=== PATIENT | male | born 1990 | race Asian ===

== ENCOUNTER → 2019-01-12 | Outpatient (CLI) | payer SELFPAY ==
[2019-01-12 09:53] LABS: HGB 15.3 gm/dL (13.0-17.5); MCHC 32.5 g/dL (31.0-37.0); MCV 89.2 fL (80.0-100.0); Mean Platelet Volume 7.5; Platelet Count 206 k/uL (150-450); RBC 5.27 m/uL (4.30-5.90); RDW 13.3 % (11.5-15.5)
[2019-01-12 16:22] LABS: ALT 28 U/L (10-49); AST 24 U/L (14-35); Albumin/Globulin Ratio 2.33 (1.60-3.17); Alkaline Phosphatase 98 U/L (41-126); Bilirubin, Conjugated <0.20 mg/dL (0.20-0.40); Calcium 9.2 mg/dL (8.7-10.3); Carbon Dioxide 26.3 mmol/L (21.6-31.8); Chloride 105 mmol/L (96-109); Cholesterol 161 mg/dL (0-200); Globulin 2.1 g/dL (1.6-3.3); Glucose 93 mg/dL (70-110); Potassium 4.3 mmol/L (3.5-5.5); Sodium 140 mmol/L (135-145); Total Bilirubin 0.4 mg/dL (0.2-1.2)
[2019-01-12 18:27] LABS: Hemoglobin A1C 5.7 % (4.0-6.0)
== END | disposition home or self-care (01) ==
LOC: LABWHC1 08:49
PROVIDERS: ATTEND Family Medicine
DX: Z00.00 Encounter for general adult medical examination without abnormal findings (principal)
CPT/HCPCS: 36415; 80048; 80061; 80076; 82306; 83036; 85027

== ENCOUNTER → 2019-07-10 | Outpatient (CLI) | payer BC ==
[2019-07-10 17:38] LABS: Hemoglobin A1C 5.4 % (4.0-6.0)
== END | disposition home or self-care (01) ==
LOC: LABWHC1 09:30
PROVIDERS: ATTEND Internal Medicine Geriatric Medicine
DX: R73.03 Prediabetes (principal)
CPT/HCPCS: 36415; 83036

== ENCOUNTER → 2020-03-31 | Outpatient (CLI) | payer OTHER ==
[2020-03-31 13:20] LABS: HCT 44.7 % (39.0-53.0); HGB 15.1 gm/dL (13.0-17.5); MCH 31.1 pg (25.0-35.0); MCHC 33.8 g/dL (31.0-37.0); MCV 91.8 fL (80.0-100.0); Mean Platelet Volume 7.7; Platelet Count 175 k/uL (150-450); RBC 4.87 m/uL (4.30-5.90); RDW 12.2 % (11.5-15.5); WBC 6.4 k/uL (3.8-10.6)
[2020-03-31 21:15] LABS: African American GFR (CKD) 103.9 (60.0-200.0); Albumin 4.5 g/dL (3.80-4.90); Albumin/Globulin Ratio 1.8 (1.60-3.17); Anion Gap 6.6 mmol/L (4.00-12.00); BUN/Creat Ratio 12.73 Ratio (12.00-20.00); Calcium 9.5 mg/dL (8.7-10.3); Carbon Dioxide 27.4 mmol/L (21.6-31.8); Chol/HDL Ratio 4.38; Globulin 2.5 g/dL (1.6-3.3); LDL Cholesterol,Calculated 118.4 mg/dL (0.0-131.0); Non-African American GFR(CKD) 89.6 (60.0-200.0); Total Bilirubin 0.6 mg/dL (0.2-1.2); VLDL Calculation 16.6 mg/dL (5.00-40.00)
[2020-03-31 21:33] LABS: Prostate Specific Antigen 0.2 ng/mL (0.0-2.5)
[2020-03-31 22:18] LABS: Hemoglobin A1C 5.4 % (4.0-6.0)
== END | disposition home or self-care (01) ==
LOC: LABWHC1 11:59
PROVIDERS: ATTEND Family Medicine
DX: Z00.00 Encounter for general adult medical examination without abnormal findings (principal)
CPT/HCPCS: 36415; 80053; 80061; 83036; 84153; 85027

== ENCOUNTER → 2020-06-26 | Outpatient (CLI) | payer OTHER | END | disposition home or self-care (01) | LOC: LABMAIN 03:21 | PROVIDERS: ATTEND Internal Medicine | DX: Z11.1 Encounter for screening for respiratory tuberculosis (principal) | CPT/HCPCS: 36415; 86480 ==

== ENCOUNTER 2024-08-02 18:03 | Emergency (ER) | payer OTHER ==
[2024-08-02 18:16] VITALS: BP 130/77; PULSE 75; RESP 18; TEMP 98
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
[2024-08-02] MEDS: KETOROLAC 15 MG/ML 1 ML VIAL IM STA ×2 (19:10→19:15)
== END 2024-08-02 19:50 | disposition home or self-care (01) ==
LOC: EC 18:03
DX: S16.1XXA Strain of muscle, fascia and tendon at neck level, initial encounter (principal); V49.40XA Driver injured in collision with unspecified motor vehicles in traffic accident, initial encounter; Y92.410 Unspecified street and highway as the place of occurrence of the external cause
CPT/HCPCS: 72125; 70450; 99284; 96372; J1885